=== PATIENT | male | born 1955 | race Caucasian/White ===

== ENCOUNTER → 2016-10-17 | Outpatient (CLI) | payer MEDICARE | LOC: HEART 5 10-15 08:00 | DX: I20.9 Angina pectoris, unspecified (principal) | CPT/HCPCS: 93306 ==

== ENCOUNTER → 2021-02-20 | Outpatient (CLI) | payer MEDICARE ==
[~2021-02-20] MED LIST: ATORVASTATIN CA40 MG PO; CLARITIN10 MG PO; CORTISPORIN OTI10 M1 EARRT; CYMBALTA60 MG PO; ECOTRIN81 MG PO; FLONASE 0.05% N16 GM; GABAPENTIN800 MG PO; HYDROCHLOROTHIA25 MG PO; IBU800 MG PO; LEVOTHYROXINE50 MCG PO; LOVAZA1 GM PO; MEDROL4 MG PO; OMEPRAZOLE20 MG PO; OS-CAL 500+D31 EACH PO; OXYCODONE HCL15 MG PO; REQUIP1 MG PO; TENORMIN 25 MG25 MG PO; VITAMIN B-121000 MCG PO; ZANAFLEX4 MG PO; ZESTRIL2.5 MG PO
== END ==
LOC: HEART 5 08:45
DX: R55 Syncope and collapse (principal); I08.8 Other rheumatic multiple valve diseases; R93.1 Abnormal findings on diagnostic imaging of heart and coronary circulation; Z95.2 Presence of prosthetic heart valve
CPT/HCPCS: 93306